=== PATIENT | female | born 1940 | race Caucasian/White ===

== ENCOUNTER → 2017-03-29 | Outpatient (CLI) | payer MEDICARE ==
[~2017-03-29] MED LIST: 'XANAX0.25 MG PO; CALCIUM + D 6001 TAB PO; MICRO-K 1010 MEQ PO; MULTIVITAMIN1 CTB PO; NADOLOL80 MG PO; NORVASC10 MG PO; PROTONIX40 MG PO; STOOL SOFTENER; SYNTHROID,LEVO50 MCG PO; ZOCOR20 MG PO
[2017-03-29 09:17] LABS: BUN 22 mg/dl (7-24); CARBON DIOXIDE 28 mmol/L (21-32); CHLORIDE 108 mmol/L (98-107); CHOLESTEROL 190 mg/dL (<200); EST GLOM FILT AFRICAN AMERICAN > 60 ml/min; GLUCOSE 102 mg/dL (65-99); HDL CHOLESTEROL 63 mg/dl (40-60); LDL CHOLESTEROL 101 mg/dL (9-159); POTASSIUM 3.7 mmol/L (3.5-5.1); SGOT/AST 19 IU/L (3-35); SGPT/ALT 20 U/L (12-78); SODIUM 143 mmol/L (136-145); TRIGLYCERIDES 128 mg/dl (<150); VLDL CHOLESTEROL 26 mg/dL (6-40)
[2017-03-29 09:57] LABS: BASO % 0.8 % (0.0-1.0); EOS # 0.1 10*3/uL (0.0-0.4); EOS % 1.4 % (1.0-4.0); HEMATOCRIT 42.9 % (37.0-47.0); HEMOGLOBIN 13.4 g/dl (12.0-16.0); LYMPH # 1.5 10*3/uL (1.3-4.4); LYMPH % 30.3 % (27.0-41.0); MEAN CELL VOLUME 88.1 fl (81.0-99.0); MEAN CORPUSCULAR HGB 27.5 pg (27.0-31.0); MEAN CORPUSCULAR HGB CONC 31.2 g/dl (33.0-37.0); MEAN PLATELET VOLUME 9.6 fl (9.6-12.3); MONO # 0.5 10*3/uL (0.1-1.0); MONO % 9.8 % (3.0-9.0); NEUT # 2.8 10*3/uL (2.3-7.9); NEUT % 57.3 % (47.0-73.0); PLATELET COUNT AUTOMATED 310 10*3/uL (130-400); RED BLOOD COUNT 4.87 10*6/uL (4.10-5.10); RED CELL DISTRI WIDTH 13.9 % (0-14.5); WHITE BLOOD COUNT 4.9 10*3/uL (4.8-10.8)
== END | disposition home or self-care (01) ==
LOC: LAB 08:17
PROVIDERS: Internal Medicine Cardiovascular Disease
DX: Z95.0 Presence of cardiac pacemaker (principal); Z79.899 Other long term (current) drug therapy

== ENCOUNTER → 2017-06-03 | Outpatient (CLI) | payer MEDICARE ==
[2017-06-03 11:08] LABS: BASO % 0.5 % (0.0-1.0); EOS # 0.1 10*3/uL (0.0-0.4); HEMOGLOBIN 13.5 g/dl (12.0-16.0); LYMPH # 1.7 10*3/uL (1.3-4.4); MEAN CELL VOLUME 88.3 fl (81.0-99.0); MEAN CORPUSCULAR HGB 27.7 pg (27.0-31.0); MEAN CORPUSCULAR HGB CONC 31.4 g/dl (33.0-37.0); MEAN PLATELET VOLUME 9.1 fl (9.6-12.3); MONO # 0.6 10*3/uL (0.1-1.0); MONO % 9.8 % (3.0-9.0); NEUT # 3.6 10*3/uL (2.3-7.9); NEUT % 60.5 % (47.0-73.0); PLATELET COUNT AUTOMATED 282 10*3/uL (130-400); RED BLOOD COUNT 4.87 10*6/uL (4.10-5.10); RED CELL DISTRI WIDTH 13.8 % (0-14.5); WHITE BLOOD COUNT 5.9 10*3/uL (4.8-10.8)
[2017-06-03 11:40] LABS: BUN 20 mg/dl (7-24); CARBON DIOXIDE 29 mmol/L (21-32); CHLORIDE 105 mmol/L (98-107); CHOLESTEROL 189 mg/dL (<200); CHOLESTEROL/HDL RATIO 3.3; EST GLOM FILT AFRICAN AMERICAN > 60 ml/min; GLUCOSE 100 mg/dL (65-99); HDL CHOLESTEROL 57 mg/dl (40-60); LDL CHOLESTEROL 104 mg/dL (9-159); POTASSIUM 4.2 mmol/L (3.5-5.1); SODIUM 141 mmol/L (136-145); TRIGLYCERIDES 138 mg/dl (<150); VLDL CHOLESTEROL 28 mg/dL (6-40)
== END | disposition home or self-care (01) ==
LOC: LAB 09:31 → US 10:00
PROVIDERS: Family Medicine
DX: M51.37 Other intervertebral disc degeneration, lumbosacral region (principal); I73.9 Peripheral vascular disease, unspecified; R06.02 Shortness of breath; G89.29 Other chronic pain; M41.86 Other forms of scoliosis, lumbar region; R79.89 Other specified abnormal findings of blood chemistry; M43.16 Spondylolisthesis, lumbar region; Z87.39 Personal history of other diseases of the musculoskeletal system and connective tissue

== ENCOUNTER → 2018-02-13 | Outpatient (CLI) | payer MEDICARE | END | disposition home or self-care (01) | LOC: RESCLI 00:33 | DX: I25.10 Atherosclerotic heart disease of native coronary artery without angina pectoris (principal); I10 Essential (primary) hypertension; F41.1 Generalized anxiety disorder; E55.9 Vitamin D deficiency, unspecified; E78.5 Hyperlipidemia, unspecified; K59.00 Constipation, unspecified; E87.6 Hypokalemia; I73.9 Peripheral vascular disease, unspecified; J45.909 Unspecified asthma, uncomplicated; E03.9 Hypothyroidism, unspecified; J30.2 Other seasonal allergic rhinitis; Z95.5 Presence of coronary angioplasty implant and graft ==

== ENCOUNTER → 2018-05-25 | Outpatient (CLI) | payer MEDICARE ==
[~2018-05-25] MED LIST changes: +CILOSTAZOL100 MG PO; +FLOVENT HFA12 GM INH; +SINGULAIR10 M1 PO; +SYMB160 INH; +TOPROL XL50 M1 PO
[2018-05-25 10:20] LABS: BUN 18 mg/dl (7-24); CHLORIDE 104 mmol/L (98-107); CHOLESTEROL 174 mg/dL (<200); CREATININE 0.89 mg/dL (0.55-1.02); HDL CHOLESTEROL 54 mg/dl (40-60); LDL CHOLESTEROL 99 mg/dL (9-159); POTASSIUM 3.9 mmol/L (3.5-5.1); SGOT/AST 13 IU/L (3-35); SGPT/ALT 19 U/L (12-78); SODIUM 142 mmol/L (136-145); TRIGLYCERIDES 106 mg/dl (<150); VLDL CHOLESTEROL 21 mg/dL (6-40)
== END | disposition home or self-care (01) ==
LOC: LAB 09:27
PROVIDERS: Internal Medicine Cardiovascular Disease
DX: I24.9 Acute ischemic heart disease, unspecified (principal)

== ENCOUNTER → 2018-05-30 | Outpatient (CLI) | payer MEDICARE ==
[2018-05-30 08:49] LABS: CHLORIDE 105 mmol/L (98-107); POTASSIUM 4.1 mmol/L (3.5-5.1); SODIUM 140 mmol/L (136-145)
[2018-05-30 08:54] LABS: BUN 26 mg/dl (7-24); CREATININE 0.88 mg/dL (0.55-1.02)
== END | disposition home or self-care (01) ==
LOC: LAB 07:52
PROVIDERS: Internal Medicine Cardiovascular Disease
DX: I73.9 Peripheral vascular disease, unspecified (principal); Z79.899 Other long term (current) drug therapy

== ENCOUNTER → 2018-07-12 | Outpatient (CLI) | payer MEDICARE | END | disposition home or self-care (01) | LOC: NM 07:57 | DX: M17.12 Unilateral primary osteoarthritis, left knee (principal); R68.89 Other general symptoms and signs ==

== ENCOUNTER → 2018-07-20 | Outpatient (CLI) | payer MEDICARE | END | disposition home or self-care (01) | LOC: US 11:50 | DX: R60.0 Localized edema (principal) ==

== ENCOUNTER → 2018-10-24 | Outpatient (CLI) | payer MEDICARE | END | disposition home or self-care (01) | LOC: RAD 10:15 | DX: J43.9 Emphysema, unspecified (principal) ==

== ENCOUNTER → 2018-12-05 | Outpatient (CLI) | payer MEDICARE | END | disposition home or self-care (01) | LOC: CT 12:48 | DX: J34.1 Cyst and mucocele of nose and nasal sinus (principal); J34.2 Deviated nasal septum; J32.4 Chronic pansinusitis; R42 Dizziness and giddiness; M54.2 Cervicalgia ==

== ENCOUNTER → 2019-03-06 | Outpatient (CLI) | payer MEDICARE | END | disposition home or self-care (01) | LOC: RESCLI 08:36 | DX: I12.9 Hypertensive chronic kidney disease with stage 1 through stage 4 chronic kidney disease, or unspecified chronic kidney disease (principal); N18.3 Chronic kidney disease, stage 3 (moderate); F41.1 Generalized anxiety disorder; E55.9 Vitamin D deficiency, unspecified; E78.5 Hyperlipidemia, unspecified; I25.10 Atherosclerotic heart disease of native coronary artery without angina pectoris; K59.00 Constipation, unspecified; E87.6 Hypokalemia; I73.9 Peripheral vascular disease, unspecified; J45.909 Unspecified asthma, uncomplicated; E03.9 Hypothyroidism, unspecified ==

== ENCOUNTER → 2019-04-25 | Outpatient (CLI) | payer MEDICARE | END | disposition home or self-care (01) | LOC: NM 09:26 | DX: M17.12 Unilateral primary osteoarthritis, left knee (principal); J45.909 Unspecified asthma, uncomplicated ==

== ENCOUNTER → 2019-05-03 | Outpatient (CLI) | payer MEDICARE | END | disposition home or self-care (01) | LOC: US 11:30 | DX: R60.0 Localized edema (principal) ==

== ENCOUNTER → 2019-08-02 | Outpatient (CLI) | payer MEDICARE | END | disposition home or self-care (01) | LOC: US 01:02 | DX: R22.42 Localized swelling, mass and lump, left lower limb (principal) ==

== ENCOUNTER → 2019-08-13 | Outpatient (CLI) | payer MEDICARE ==
[2019-08-13 09:23] LABS: CREATININE 0.84 mg/dL (0.55-1.02)
== END | disposition home or self-care (01) ==
LOC: LAB 08:50
PROVIDERS: Orthopaedic Surgery
DX: M17.12 Unilateral primary osteoarthritis, left knee (principal); M25.462 Effusion, left knee; M79.662 Pain in left lower leg; R60.0 Localized edema

== ENCOUNTER → 2019-08-14 | Outpatient (CLI) | payer MEDICARE | END | disposition home or self-care (01) | LOC: CT 00:22 | DX: K57.30 Diverticulosis of large intestine without perforation or abscess without bleeding (principal); M17.12 Unilateral primary osteoarthritis, left knee; M25.462 Effusion, left knee; M79.662 Pain in left lower leg; R60.0 Localized edema; K44.9 Diaphragmatic hernia without obstruction or gangrene; N81.12 Cystocele, lateral; R19.00 Intra-abdominal and pelvic swelling, mass and lump, unspecified site ==

== ENCOUNTER → 2019-08-16 | Outpatient (CLI) | payer MEDICARE | END | disposition home or self-care (01) | LOC: NM 00:16 | DX: M17.12 Unilateral primary osteoarthritis, left knee (principal); M25.462 Effusion, left knee; M79.605 Pain in left leg; M79.662 Pain in left lower leg; R60.0 Localized edema ==

== ENCOUNTER → 2019-10-16 | Outpatient (CLI) | payer MEDICARE ==
[2019-10-16 10:04] LABS: BASO # 0.1 10*3/uL (0.0-0.1); BASO % 0.6 % (0.0-1.0); EOS # 0.1 10*3/uL (0.0-0.4); EOS % 1.6 % (1.0-4.0); HEMATOCRIT 42.3 % (37.0-47.0); HEMOGLOBIN 12.7 g/dl (12.0-16.0); LYMPH # 1.5 10*3/uL (1.3-4.4); LYMPH % 17.7 % (27.0-41.0); MEAN CELL VOLUME 88.7 fl (81.0-99.0); MEAN CORPUSCULAR HGB 26.6 pg (27.0-31.0); MEAN PLATELET VOLUME 8.9 fl (9.6-12.3); MONO # 0.9 10*3/uL (0.1-1.0); MONO % 9.9 % (3.0-9.0); NEUT % 69.6 % (47.0-73.0); PLATELET COUNT AUTOMATED 364 10*3/uL (130-400); RED BLOOD COUNT 4.77 10*6/uL (4.10-5.10); RED CELL DISTRI WIDTH 15.1 % (0-14.5); WHITE BLOOD COUNT 8.6 10*3/uL (4.8-10.8)
[2019-10-16 10:39] LABS: ALBUMIN 3.6 gm/dl (3.1-4.5); ALKALINE PHOSPHATASE 79 U/L (45-117); BUN 19 mg/dl (7-24); CHLORIDE 106 mmol/L (98-107); CHOLESTEROL 178 mg/dL (<200); HDL CHOLESTEROL 57 mg/dl (40-60); LDL CHOLESTEROL 106 mg/dL (9-159); POTASSIUM 4.2 mmol/L (3.5-5.1); SGOT/AST 15 IU/L (3-35); SGPT/ALT 20 U/L (12-78); SODIUM 140 mmol/L (136-145); TRIGLYCERIDES 77 mg/dl (<150); VLDL CHOLESTEROL 15 mg/dL (6-40)
[2019-10-17 10:08] LABS: CREATININE,URINE 82.9 mg/dL (Not Estab.); MICRO ALBUMIN/CRE RATIO 7.4 (0.0-30.0)
== END | disposition home or self-care (01) ==
LOC: RESCLI 01:18
PROVIDERS: Internal Medicine
DX: F41.1 Generalized anxiety disorder (principal); J30.2 Other seasonal allergic rhinitis; I10 Essential (primary) hypertension; E55.9 Vitamin D deficiency, unspecified; E78.5 Hyperlipidemia, unspecified; I25.10 Atherosclerotic heart disease of native coronary artery without angina pectoris; K59.00 Constipation, unspecified; I73.9 Peripheral vascular disease, unspecified; E03.9 Hypothyroidism, unspecified; E87.6 Hypokalemia; F39 Unspecified mood [affective] disorder; M25.569 Pain in unspecified knee; Z95.0 Presence of cardiac pacemaker; Z79.899 Other long term (current) drug therapy; Z79.51 Long term (current) use of inhaled steroids

== ENCOUNTER → 2019-12-06 | Outpatient (CLI) | payer MEDICARE | END | disposition home or self-care (01) | LOC: RAD 08:33 | DX: M19.012 Primary osteoarthritis, left shoulder (principal); W19.XXXA Unspecified fall, initial encounter ==

== ENCOUNTER → 2019-12-13 | Outpatient (CLI) | payer MEDICARE | END | disposition home or self-care (01) | LOC: RAD 08:58 | DX: M41.86 Other forms of scoliosis, lumbar region (principal); M54.42 Lumbago with sciatica, left side ==

== ENCOUNTER → 2020-06-03 | Outpatient (CLI) | payer MEDICARE | END | disposition home or self-care (01) | LOC: RESCLI 02:48 | DX: K59.00 Constipation, unspecified (principal); E87.6 Hypokalemia; E61.1 Iron deficiency; F39 Unspecified mood [affective] disorder; E03.9 Hypothyroidism, unspecified; E78.5 Hyperlipidemia, unspecified; I25.10 Atherosclerotic heart disease of native coronary artery without angina pectoris; J45.909 Unspecified asthma, uncomplicated; J32.1 Chronic frontal sinusitis; Z79.899 Other long term (current) drug therapy; Z95.0 Presence of cardiac pacemaker; Z98.890 Other specified postprocedural states; Z88.8 Allergy status to other drugs, medicaments and biological substances ==

== ENCOUNTER → 2020-09-02 | Outpatient (CLI) | payer MEDICARE | END | disposition home or self-care (01) | LOC: RAD 13:04 | PROVIDERS: ATTEND Nurse Practitioner Primary Care | DX: Z78.0 Asymptomatic menopausal state (principal) ==

== ENCOUNTER → 2020-09-24 | Outpatient (CLI) | payer MEDICARE | END | disposition home or self-care (01) | LOC: RAD 13:59 | PROVIDERS: ATTEND Internal Medicine Critical Care Medicine | DX: R07.9 Chest pain, unspecified (principal); Z95.0 Presence of cardiac pacemaker ==

== ENCOUNTER → 2021-06-19 | Outpatient (CLI) | payer MEDICARE ==
[2021-06-19 08:54] LABS: CHOLESTEROL 168 mg/dL (<200); LDL CHOLESTEROL 100 mg/dL (9-159); SGOT/AST 12 IU/L (3-35); SGPT/ALT 17 U/L (12-78); TRIGLYCERIDES 80 mg/dl (<150)
== END | disposition home or self-care (01) ==
LOC: LAB 08:24
PROVIDERS: ATTEND Registered Nurse
DX: E78.5 Hyperlipidemia, unspecified (principal)

== ENCOUNTER → 2021-06-24 | Outpatient (CLI) | payer MEDICARE | END | disposition home or self-care (01) | LOC: RESCLI 00:41 | PROVIDERS: ATTEND Internal Medicine Nephrology | DX: E55.9 Vitamin D deficiency, unspecified (principal); E03.9 Hypothyroidism, unspecified; E78.5 Hyperlipidemia, unspecified; F41.9 Anxiety disorder, unspecified; J45.909 Unspecified asthma, uncomplicated; I25.10 Atherosclerotic heart disease of native coronary artery without angina pectoris; I73.9 Peripheral vascular disease, unspecified; R68.89 Other general symptoms and signs; F39 Unspecified mood [affective] disorder; M19.90 Unspecified osteoarthritis, unspecified site; R42 Dizziness and giddiness; I10 Essential (primary) hypertension; Z95.0 Presence of cardiac pacemaker; Z79.899 Other long term (current) drug therapy; Z90.710 Acquired absence of both cervix and uterus; Z79.82 Long term (current) use of aspirin ==

== ENCOUNTER → 2021-11-09 | Outpatient (CLI) | payer MEDICARE | END | disposition home or self-care (01) | LOC: US 08:18 | PROVIDERS: ATTEND Nurse Practitioner Primary Care | DX: I73.9 Peripheral vascular disease, unspecified (principal); R60.9 Edema, unspecified; M79.604 Pain in right leg; M79.605 Pain in left leg ==

== ENCOUNTER → 2022-02-10 | Outpatient (CLI) | payer MEDICARE | END | disposition home or self-care (01) | LOC: RESCLI 01:11 | PROVIDERS: ATTEND Internal Medicine | DX: I73.9 Peripheral vascular disease, unspecified (principal); E03.9 Hypothyroidism, unspecified; E78.5 Hyperlipidemia, unspecified; J45.909 Unspecified asthma, uncomplicated; F41.9 Anxiety disorder, unspecified; I11.9 Hypertensive heart disease without heart failure; I25.10 Atherosclerotic heart disease of native coronary artery without angina pectoris; K21.9 Gastro-esophageal reflux disease without esophagitis; K59.00 Constipation, unspecified; J30.1 Allergic rhinitis due to pollen; Z79.899 Other long term (current) drug therapy; Z88.8 Allergy status to other drugs, medicaments and biological substances; Z88.0 Allergy status to penicillin; Z79.82 Long term (current) use of aspirin ==

== ENCOUNTER → 2022-02-11 | Outpatient (CLI) | payer MEDICARE | END | disposition home or self-care (01) | LOC: US 11:47 | PROVIDERS: ATTEND Internal Medicine | DX: I73.9 Peripheral vascular disease, unspecified (principal); M79.604 Pain in right leg ==

== ENCOUNTER → 2022-05-05 | Outpatient (CLI) | payer MEDICARE | END | disposition home or self-care (01) | LOC: RESCLI 00:48 | PROVIDERS: ATTEND Internal Medicine | DX: I11.9 Hypertensive heart disease without heart failure (principal); I25.10 Atherosclerotic heart disease of native coronary artery without angina pectoris; J45.909 Unspecified asthma, uncomplicated; F41.9 Anxiety disorder, unspecified; F39 Unspecified mood [affective] disorder; E03.9 Hypothyroidism, unspecified; E78.5 Hyperlipidemia, unspecified; E55.9 Vitamin D deficiency, unspecified; K59.00 Constipation, unspecified; M19.90 Unspecified osteoarthritis, unspecified site; K21.9 Gastro-esophageal reflux disease without esophagitis; R42 Dizziness and giddiness; J40 Bronchitis, not specified as acute or chronic; Z79.899 Other long term (current) drug therapy; Z79.82 Long term (current) use of aspirin; Z88.8 Allergy status to other drugs, medicaments and biological substances ==

== ENCOUNTER 2022-06-05 12:24 | Emergency (ER) | payer MEDICARE ==
[~2022-06-05] VITALS: Ht 157.4 cm; Wt 64.4 kg
[2022-06-05 12:50] VITALS: BP 98/72
[2022-06-05] MEDS ORDERED: PREDNISONE50 MG PO (13:01)
== END 2022-06-05 13:45 | disposition home or self-care (01) ==
LOC: ED 12:24
DX: L25.9 Unspecified contact dermatitis, unspecified cause (principal); Z91.041 Radiographic dye allergy status; Z88.0 Allergy status to penicillin; Z91.013 Allergy to seafood; Z79.899 Other long term (current) drug therapy; Z90.710 Acquired absence of both cervix and uterus

== ENCOUNTER → 2022-06-30 | Outpatient (CLI) | payer MEDICARE ==
[~2022-06-30] MED LIST changes: +PREDNISONE50 MG PO
[2022-06-30 14:45] LABS: BASO % 0.5 % (0.0-1.0); EOS # 0.1 10*3/uL (0.0-0.4); EOS % 1.9 % (1.0-4.0); HEMATOCRIT 41.6 % (37.0-47.0); LYMPH # 1.9 10*3/uL (1.3-4.4); LYMPH % 29.9 % (27.0-41.0); MEAN CELL VOLUME 87.9 fl (81.0-99.0); MEAN CORPUSCULAR HGB 27.9 pg (27.0-31.0); MEAN CORPUSCULAR HGB CONC 31.7 g/dl (33.0-37.0); MEAN PLATELET VOLUME 8.6 fl (9.6-12.3); MONO # 0.7 10*3/uL (0.1-1.0); MONO % 10.8 % (3.0-9.0); NEUT # 3.5 10*3/uL (2.3-7.9); NEUT % 56.4 % (47.0-73.0); PLATELET COUNT AUTOMATED 276 10*3/uL (130-400); RED BLOOD COUNT 4.73 10*6/uL (4.10-5.10); WHITE BLOOD COUNT 6.3 10*3/uL (4.8-10.8)
[2022-06-30 14:55] LABS: BUN 18 mg/dl (7-24); CHLORIDE 107 mmol/L (98-107); CREATININE 0.92 mg/dL (0.55-1.02); POTASSIUM 4.5 mmol/L (3.5-5.1); SODIUM 140 mmol/L (136-145)
== END | disposition home or self-care (01) ==
LOC: LAB 14:27
PROVIDERS: Registered Nurse; ATTEND Internal Medicine Cardiovascular Disease
DX: I20.0 Unstable angina (principal); E78.5 Hyperlipidemia, unspecified